=== PATIENT | female | born 1945 | race Caucasian/White ===

== ENCOUNTER 2025-02-10 08:05 | Inpatient (IN) | payer MEDICARE, BC, SELFPAY ==
[2025-02-10] VITALS (24 sets, daily range): BP systolic 78–140; BP diastolic 40–106; BMI 34.8
[2025-02-10 02:49] LABS: Hematocrit 41.4 % (37.0-47.0); Hemoglobin 13.8 g/dL (12.0-16.0); Mean Corp Hgb Conc. 33.3 g/dL (33.0-37.0); Mean Corpuscular Volume 92.2 fL (81.0-99.0); Platelet Count 188 10^3/uL (130-400); Red Cell Dist. Width 12.8 % (11.5-14.5)
[2025-02-10 02:56] LABS: ALT (SGPT) 34 U/L (0-35); AST (SGOT) 48 U/L (14-36); Albumin 3.7 g/dl (3.5-5.0); Alkaline Phosphatase 168 U/L (38-126); Blood Urea Nitrogen 29 mg/dl (7-17); Calcium 8.3 mg/dl (8.4-10.2); Carbon Dioxide 15 mmol/L (22-30); Chloride 111 mmol/L (98-107); Glucose 258 mg/dl (70-99); Potassium 4.2 mmol/L (3.5-5.1); Sodium 137 mmol/L (135-145); Total Protein 6.7 g/dl (6.3-8.2); eGFR > 60.00
[2025-02-10 02:59] LABS: Nucleated Red Blood Cells % 0 %
[2025-02-10] MEDS: NSS 1000 IV ×3 (03:58→07:58)
[2025-02-10] MEDS: BENADRYL 50 MG IV (04:27)
[2025-02-10] MEDS: SOLU-CORTEF 200 MG IV (04:27)
--- NOTE | 2025-02-10 05:28 | ED.GENMED ---
History of Present Illness
General
Chief Complaint: Fainting/Passed Out
Source: patient, family, ambulance crew and previous hospital records (ER visit for somewhat similar event January 2021)
Exam Limitations: none
Time Seen by Provider: 02/10/25 02:42
Nursing documentation reviewed up to this point in time: agreed with
History of Present Illness
History of Present Illness:
The patient is a 79-year-old female with a history of gastric bypass surgery, hysterectomy, appendectomy who presents with persistent diarrhea and vomiting. Symptoms began tonight and she reports multiple episodes of loose nonbloody watery stools
accompanied with multiple syncopal episodes. She has history of dumping syndrome over the past 15 years since her gastric bypass and often will have episodes of a few loose stools with near syncope to syncopal events but then short-lived, resolving
within 30 to 60 minutes. Tonight however diarrhea persists with multiple episodes of syncope. She has not had a fever nor chills. She denies injury. The patient confirms experiencing episodes of diarrhea and vomiting, both of which are more
severe than her previous experiences, which resemble dumping syndrome. The patient denies any other household members being ill. She reports abdominal pain, which is currently resolved. She was given Zofran by EMS with relief of nausea.
Prehospital blood pressure reportedly 70, 75 systolic upon arrival.
Past History
Past History
ED Past Medical History: Arrthythmia, HTN, NIDDM, Hypothyroidism and Other (Status post gastric bypass, surgery on Etta now to hidradenitis suppurativa of her arms, brachial cleft cyst surgery, pilonidal cyst surgery, appendectomy, hysterectomy,
,)
ED Past Surgical History: Appendectomy, Bowel resection (Gastric bypass), and Gynecological (Hysterectomy)
Social History
Tobacco: Non-smoker
Alcohol: None
Drug: None
Personal:
Living: with family
Employment: Retired
Family History
Family History: Other (Sister with kidney cancer and another sister with lung cancer)
Phy Exam
Physical Exam
Physical Exam:
GENERAL: 79-year-old woman appears her stated age, awake and alert, appears in moderate distress, easily communicative. Multiple family members accompanying.
EYE: pupils equal and reactive. anicteric
NECK: Supple, nontender, no meningismus, no significant adenopathy.
ENT: posterior pharynx is clear, oral mucosa is minimally dry. No rhinorrhea.
CARDIAC: Regular rate and rhythm. no murmur.
LUNGS: Clear breath sounds bilaterally, no acute respiratory distress, no wheezes/rales/rhonchi
ABDOMEN: Soft, nondistended, without focal tenderness, no r/g, no cvat. Mildly hypoactive bowel sounds.
NEUROLOGICAL: Alert and oriented x3, no focal neuro deficits.
SKIN: Warm and dry, minimally pale in color, skin intact. No rash.
MUSCULOSKELETAL: No C/C/E. peripheral pulses are full and equal b/l. No palpable tenderness.
PSYCH: Normal and appropriate interaction.
Course
Orders/Labs/Results
Orders:
Orders
02/10/25 01:58
Electrocardiogram (*1) Urgent
Reason for Study: Syncope
02/10/25 01:59
EKG- Treatment ONCE
02/10/25 02:00
Complete Blood Count/With Diff Urgent
Comprehensive Metabolic Panel Urgent
Lactic Acid Urgent
02/10/25 02:40
STOOL [C difficile Antigen & Toxins] Urgent
TRACY Source: Feces/Stool
Specimen Description:
Date Specimen was Collected: 02/10/25
Time Specimen was Collected: 02:39
02/10/25 02:45
Fecal Management-Treatment ONCE
0.9% Sodium Chloride 1000 ml [Nss] 1,000 ml IV BOLUS
02/10/25 03:32
CT Abd/pelvis W Iv Cont Urgent
Comment:
Reason For Exam: N/V/D, hypotension
0.9% Sodium Chloride 1000 ml [Nss] 1,000 ml IV BOLUS
02/10/25 03:48
Add On - Microbiology Urgent
Tests Added?: stool culture
02/10/25 04:20
Diphenhydramine [Benadryl] 50 mg IV NOW STA
Hydrocortisone Sod Succinate [Solu-Cortef] 200 mg IV NOW STA
02/10/25 06:55
0.9% Sodium Chloride 1000 ml [Nss] 1,000 ml IV 250 mls/hr
Abnormal Lab Results
02/10/25
02:00
MPV 11.6 H fL
(7.4-10.4)
Absolute Lymphs (auto) 3.6 H 10^3/uL
(1.2-3.4)
Chloride 111 H mmol/L
(98-107)
Carbon Dioxide 15 L mmol/L
(22-30)
BUN 29 H mg/dl
(7-17)
Glucose 258 H mg/dl
(70-99)
Calcium 8.3 L mg/dl
(8.4-10.2)
AST 48 H U/L
(14-36)
Alkaline Phosphatase 168 H U/L
(38-126)
02/10/25 02:00
02/10/25 02:00
Vital Signs
Initial and Last Documented VS:
Initial Vital Signs
Temp Pulse Resp Pulse Ox
97.9 F 74 18 99
02/10/25 01:53 02/10/25 01:53 02/10/25 01:53 02/10/25 01:53
Last Documented Vital Signs
Temp Pulse Resp BP Pulse Ox
97.9 F 80 15 119/66 89
02/10/25 01:53 02/10/25 06:30 02/10/25 06:30 02/10/25 06:30 02/10/25 05:34
MDM/Problems Addressed
Differential Diagnosis Includes:
The Differential Diagnosis includes, in no particular order and is not limited to:
1. Dumping syndrome
2. Gastroenteritis
3. Viral gastroenteritis
4. Food poisoning
5. Bacterial infection
6. Clostridioides difficile infection
7. Small bowel obstruction
8. Dehydration
9. Electrolyte imbalance
10. Medication side effect
MDM/Problems Addressed:
Nausea, vomiting, diarrhea, multiple syncopal events
Acute hypotension
Patient presents with profuse, recurrent watery loose stools with hypotension.
Concern for acute dehydration, electrolyte abnormality, sepsis.
IV fluid resuscitation initiated.
Labs are pending including lactic acid.
Will consider pressors if hypotension persists.
Stool cultures and stool for C. difficile are pending
Will plan for CT abdomen pelvis with IV contrast.
Chronic conditions affecting care:
Prior gastric bypass with previous episodes of dumping syndrome
Chronic conditions affecting care: DM, HTN and Previous abdomnial surgery
*Radiology
Radiology exam reviewed: radiology read reviewed
*Pulse Oximetry
SaO2: 94
Oxygen Mode of Delivery: Room air
Patient hypoxic: no
*EKG
Interpreted by ED Provider?: Yes
Interpretation: normal
Comparison EKG: no changes (Unchanged from previous January 2021)
Rate: normal
Rhythm: sinus
[place]: left axis deviation
Interval: long QT
QRS Pattern: normal QRS and poor R-wave progression
Ischemia: no ischemia
*Senior Automation Engineer Interpretation
Rate: normal
Interpretation: normal
Rhythm: sinus
*Critical Care Note
Total Time (30-74mins, 75-104mins- exclusive of procedures): 30
comment:
Critical care statement: A total of 30 minutes of critical care time was provided for this patient. This includes management of unstable vital signs, evaluation of the patient at bedside, reviewing the patient's pertinent medical records, discussion
with consultants, review of old EKGs and review of pertinent medical records. This time with separate from time utilized to perform the aforementioned documented procedures
Update Note
Update Note:
05:30
After 2.5 L normal saline solution, blood pressure has improved to 115 systolic.
Diarrhea has markedly improved but not completely resolved.
No further nausea/vomiting.
Abdominal exam overall reassuring, no appreciable tenderness.
CBC is unremarkable.
Mild metabolic acidosis with mild to moderate prerenal azotemia. Random glucose moderately elevated at 258. Mild hypocalcemia at 8.3.
Will continue IV fluids.
CT is pending.
07:10
CAT scan shows acute gastroenteritis, pancolitis. There is also concern for cholelithiasis with gallbladder distention and inflammation suspicious for cholecystitis. However patient continues to have no abdominal pain, specifically no right upper
quadrant tenderness thus cholecystitis is less likely.
She does continue with diarrhea however has been improving.
Will continue IV fluids and admit to hospitalist service. Stool cultures are pending. To consider initiation of antibiotics, will discuss with hospitalist.
ED Attending Note
-
Portions of this chart may have been created with voice recognition software.� Occasional wrong word or��sound alike� substitutions may have occurred due to the inherent limitations of voice recognition software.
Discharge Plan
Departure
Patient Disposition: Admit
Date of Disposition: 02/10/25
Time of Disposition: 07:08
Admit to: Med/Surg
Presentation/result/management discussed w/ accepting MD/DO: Hospitalist
Condition: Fair
Discharge Problem:
Acute gastroenteritis, Pancolitis with intractable diarrhea, Hypotension, Recurrent syncope
Referrals:
Ramon Elise MD [Family Provider, Internal Medicine]
Interventions
Interventions:
*Risk Screen - Suicide Last Done: 02/10/25 01:53
*General Assessment Last Done: 02/10/25 01:53
*Neglect/Abuse Screening Last Done: 02/10/25 01:53
*ED- Fall Risk Assessment Last Done: 02/10/25 01:53
ED- Cardiac Assessment Last Done: 02/10/25 03:55
ED- Neurological Assessment Last Done: 02/10/25 03:55
Discharge Date and Time
Print Language: GEORGIAN
--- NOTE | 2025-02-10 07:39 | HPS.HSE ---
Family Physician
-
Family Physician: Ramon Elise MD
Chief Complaint
-
Syncope, vomiting, diarrhea
History of Present Illness
79-year-old female with history of gastric bypass in 2011, was in her usual state of health up until late last night when she had initially constipation and then subsequent severe diarrhea and vomiting.
Denies abdominal pain, fevers or chills.
Did not take any medications for constipation.
Denies any recent medication changes. Denies any sick contacts. Ate roast beef sandwich for dinner that was made fresh. No one else got ill at home. She lives with her family.
She has occasional episodes of diarrhea that happen every other month but not on a regular basis. Most of her stools are normal.
Has been on Ozempic for approximately 1 year for diabetes as well as obesity. No dose changes recently.
Medical History
Past Medical History
Past Medical History: Reports Other
Additional Past Medical History:
Essential hypertension
DM 2
Obesity
Osteoporosis
Hypothyroidism
Sinus tachycardia
Hidradenitis suppurativa
Pilonidal cyst
Brachial cleft cyst
Past Surgical History: Reports Other
Additional Past Surgical History:
Hysterectomy
Appendectomy
Gastric bypass
Brachial cleft surgery
Pilonidal cyst surgery
Social History
Tobacco: Former Smoker
Alcohol: None
Drug: None
Living: With Family
Employment: Retired
Family History
Family History: Not pertinent
Allergies / Home Medications
Allergies reflects when Allergies were last updated in [employer].
Home Medications with original date entered in [employer]
Allergy/Medication List:
Allergies
Allergy/AdvReac Type Severity Reaction Status Date / Time
iodine Allergy Unknown Rash Verified 01/27/21 11:37
metformin Allergy Unknown Unknown Verified 01/27/21 11:37
Med list obtained based on patient information:
Ozempic (Uknown dose) subcutaneously every Tuesday
Lisinopril 2.5 mg daily
Metoprolol 25 mg twice daily
Levothyroxine 88 mcg daily
Vitamin B1 daily
Vitamin B12 daily
Multivitamin daily
Calcium
Vitamin D3 daily
Review of Systems
-
History Source: Patient
A 12 point ROS was completed and negative except as noted: Yes
Physical Exam
Vital Signs
Vital Signs
Temp Pulse Resp BP Pulse Ox
97.9 F 80 15 119/66 94
02/10/25 01:53 02/10/25 06:30 02/10/25 06:30 02/10/25 06:30 02/10/25 07:05
Physical Exam
General: Well Developed, Well Nourished, No Apparent Distress and Comfortable
HEENT: NormoCephalic and Anicteric; No Moist mucous membranes
Respiratory: Clear
Cardiac: S1/S2 and Regular Rhythm
Breast: Deferred by me
GI: Soft, Non Tender and Non Distended
Genito-urinary: Deferred by me
Musculoskeletal: No Clubbing, No Cyanosis and No Edema
Skin: Warm and Dry
Neuro: AO x 3
Hematologic/Lymphatic: No Lymphadenopathy
Psych: Calm
Laboratory Results
-
02/10/25 02:00
02/10/25 02:00
Laboratory Results
Lactic Acid 1.9 mmol/L (0.7-2.0) 02/10/25 02:00
Total Bilirubin 0.6 mg/dl (0.2-1.3) 02/10/25 02:00
AST 48 U/L (14-36) H 02/10/25 02:00
ALT 34 U/L (0-35) 02/10/25 02:00
Alkaline Phosphatase 168 U/L (38-126) H 02/10/25 02:00
Impression/Plan
-
Hypovolemic shock -due to volume depletion. Admit to telemetry. Blood pressure much improved in the emergency room with 2 L IV fluids.
Hold antihypertensives.
Syncope -due to volume depletion due to GI losses. Hypotensive on arrival, now improved. Continue IV fluid support. Monitor on telemetry. She felt lightheaded prior to event.
Doubt cardiac arrhythmia.
Acute gastroenteritis -likely infectious. Doubt inflammatory or other etiology. Continue supportive care with IV fluids, antiemetics. Start clear liquid diet.
No signs or symptoms of sepsis.
Check stool studies.
She does not have consistent dumping syndrome symptoms as her episodes of diarrhea only happen every other month and last for [address] abdomen/pelvis done in the emergency room consistent with acute gastroenteritis reportedly. Cholelithiasis noted as well as possible cholecystitis. Official report pending.
Cholecystitis clinically seems unlikely. Does not have significant right upper quadrant tenderness. LFTs are not concerning.
Can check right upper quadrant ultrasound for any concern.
Prerenal azotemia/metabolic acidosis -normal anion gap. Due to GI losses, volume depletion. Continue supportive care. Hold lisinopril, metoprolol in light of hypotension.
DM 2 with hyperglycemia -glucose 258 in the emergency room. Use low resistance NovoLog scale. Patient states last hemoglobin A1c was 6.1%.
Essential hypertension -presentation with shock, hypotension. Hold antihypertensives.
Hypothyroidism -continue levothyroxine. Check TSH.
Obesity due to excess calories -with previous gastric bypass in 2011. She lost to 100 pounds, subsequently gained some weight back. Then started Ozempic a year ago and lost 40 pounds.
Full code
Above discussed with emergency room attending, Dr. Robles.
--- NOTE | 2025-02-10 08:51 | EDCM ---
CM reviewed chart and met with pt bedside in ED. Lives with her daughter, ROBERTA and 3 grandchildren in split level home, [address], 7 steps up to Bedroom, full bath.
Independent in ADLs, personal care and ambulation at baseline, still driving.
Confirms prescription coverage.
Hx [facility] and [facility] for STR.
PCP: Ramon Elise
Pharmacy: [facility], uses [facility] for mail order
CM will continue to follow for any discharge planning needs.
[2025-02-10 09:48] LABS: TSH 20.10 uIU/ml (0.47-4.68)
[2025-02-10] MEDS: TYLENOL 650 MG PO ×2 (10:41→20:26)
[2025-02-10] MEDS: LR 1000 IV ×2 (10:47→22:29)
[2025-02-10 12:38] LABS: Glucose - Point of Care 202 mg/dl (70-99)
[2025-02-10] MEDS: NOVOLOG FLEXPEN-LOW RESISTANCE 2 UNITS SC (13:41)
[2025-02-10] MEDS: LOVENOX 40 MG SC (17:38)
[2025-02-10] MEDS: NOVOLOG FLEXPEN-LOW RESISTANCE 1 UNITS SC (17:55)
[2025-02-10] MEDS: DESENEX/MITRAZOL/ZEASORB 1 APPLIC TOPICAL (20:28)
[2025-02-10 23:13] LABS: Glucose - Point of Care 186 mg/dl (70-99)
[2025-02-10 23:14] LABS: Glucose - Point of Care 104 mg/dl (70-99)
[2025-02-11 03:29] VITALS: BP 109/48
[2025-02-11] MEDS: SYNTHROID 88 MCG PO (05:57)
[2025-02-11 07:43] LABS: Glucose - Point of Care 105 mg/dl (70-99)
[2025-02-11 07:44] VITALS: BP 120/50
[2025-02-11] MEDS: NOVOLOG FLEXPEN-LOW RESISTANCE SC ×3 (08:29→17:06)
[2025-02-11] MEDS: TYLENOL 650 MG PO ×2 (08:32→14:52)
[2025-02-11] MEDS: DESENEX/MITRAZOL/ZEASORB 1 APPLIC TOPICAL ×2 (08:32→19:58)
[2025-02-11 09:05] LABS: ALT (SGPT) 26 U/L (0-35); AST (SGOT) 34 U/L (14-36); Albumin 3.2 g/dl (3.5-5.0); Alkaline Phosphatase 152 U/L (38-126); Blood Urea Nitrogen 13 mg/dl (7-17); Calcium 7.5 mg/dl (8.4-10.2); Carbon Dioxide 22 mmol/L (22-30); Chloride 111 mmol/L (98-107); Estimated Creatinine Clearance 69 ml/min; Glucose 135 mg/dl (70-99); Potassium 4.2 mmol/L (3.5-5.1); Sodium 138 mmol/L (135-145); Total Protein 5.7 g/dl (6.3-8.2); eGFR > 60.00
--- NOTE | 2025-02-11 10:07 | W.PN.HOSP.TC ---
Today's Communication/Plan
-
increase synthroid
advance diet
Assessment / Plan
Assessment / Plan
pt is a 79 year old female
Hypovolemic shock--due to volume depletion from diarrhea--resolved--finished IVF--restart meds
Syncope--due to volume depletion due to GI losses--pt says hit head and lost consciousness--will check head CT
right foot pain--hit foot when passed out--check x-ray
Acute gastroenteritis -likely infectious--finished IVF--advance diet--await stool studies--C. diff neg--CT scan final report pending--CT abdomen/pelvis done in the emergency room consistent with acute gastroenteritis reportedly.
Prerenal azotemia/metabolic acidosis -normal anion gap. Due to GI losses, volume depletion--resolved
DM 2 with hyperglycemia -glucose 258 in the emergency room. Use low resistance NovoLog scale. Patient states last hemoglobin A1c was 6.1%.
Essential hypertension--restart meds
Hypothyroidism -continue levothyroxine--TSH elevated at 20--will increase synthroid to 100mcg
Obesity due to excess calories -with previous gastric bypass in 2011. She lost to 100 pounds, subsequently gained some weight back. Then started Ozempic a year ago and lost 40 pounds.
Full code
Anticipated Discharge: Within 24 hours
Subjective/Interval History
-
Date of Service: February 11, 2025
pt c/o right foot pain--diarrhea improving--wants more than clear liquids
Objective Data
-
Labs:
Laboratory Results
02/11/25
08:04
Sodium 138
Potassium 4.2
Chloride 111 H
Carbon Dioxide 22
BUN 13
Creatinine 0.7
Glucose 135 H
Calcium 7.5 L
Total Bilirubin 0.3
AST 34
ALT 26
Alkaline Phosphatase 152 H
Vital Signs:
max temp for 24 hours
02/10/25
19:38
Temp 99.0 F
Vital Signs
Temp Pulse Resp BP Pulse Ox
98.0 F 89 18 120/50 96
02/11/25 07:44 02/11/25 07:44 02/11/25 07:44 02/11/25 07:44 02/11/25 07:44
I&O
02/10/25 02/11/25 02/12/25
06:59 06:59 06:59
Intake Total 1520 / 1520
Output Total 250 / 250
Balance 1270 / 1270
Review of Systems
-
All other systems: Reviewed and negative
Abdomen/GI: Reports Diarrhea (improved)
Musculoskeletal: Reports Other (right foot pain)
Physical Exam
-
General: Well Developed, Well Nourished and No Apparent Distress
HEENT: Normocephalic and Atraumatic; Negative Oxygen
Respiratory: Clear to Auscultation; Negative Wheezes or Rhonchi
Cardiac: Regular Rhythm and S1/S2; Negative Murmur
GI: Soft, Nontender, Nondistended and Normal Bowel Sounds
Musculoskeletal: No Clubbing, No Cyanosis, No Edema and Other (right foot bruised, swollen, tender to touch)
Neuro: Awake
Psych: Calm
[2025-02-11 11:14] LABS: Glycohemoglobin (HgbA1c) 6.1 % (4.0-5.6)
[2025-02-11 11:40] LABS: Glucose - Point of Care 94 mg/dl (70-99)
--- NOTE | 2025-02-11 13:42 | CM ---
CM following re: discharge planning.
Reviewed pt's chart, et with pt.
According to pt will be ready for discharge within 24 hours. Pt is aware, expressed her agreement and she stated her granddaughter will transport home. IMM reviewed, placed on chart, pt has a copy.
D/C plan: home with anticipated no needs. Granddaughter to transport at discharge.
CM will follow with discharge plan updates as hospitalization progresses
[2025-02-11 15:27] VITALS: BP 140/68
[2025-02-11 16:56] LABS: Glucose - Point of Care 93 mg/dl (70-99)
[2025-02-11] MEDS: LOVENOX 40 MG SC (17:38)
[2025-02-11] MEDS: LOPRESSOR 25 MG PO (19:58)
[2025-02-11 21:44] LABS: Glucose - Point of Care 78 mg/dl (70-99)
[2025-02-11 23:00] VITALS: BP 129/48
[2025-02-11 23:33] VITALS: BP 129/48
[2025-02-12] MEDS: SYNTHROID 100 MCG PO (05:59)
[2025-02-12 07:21] VITALS: BP 122/59
[2025-02-12 07:24] LABS: Glucose - Point of Care 94 mg/dl (70-99)
[2025-02-12] MEDS: NOVOLOG FLEXPEN-LOW RESISTANCE SC ×3 (07:27→17:40)
[2025-02-12] MEDS: ZESTRIL 2.5 MG PO (07:47)
[2025-02-12] MEDS: LOPRESSOR 25 MG PO (07:47)
[2025-02-12] MEDS: DESENEX/MITRAZOL/ZEASORB 1 APPLIC TOPICAL (07:49)
[2025-02-12 08:31] LABS: Hematocrit 29.9 % (37.0-47.0); Hemoglobin 9.9 g/dL (12.0-16.0); Mean Corp Hgb Conc. 33.1 g/dL (33.0-37.0); Mean Corpuscular Volume 90.9 fL (81.0-99.0); Platelet Count 145 10^3/uL (130-400); Red Cell Dist. Width 13.0 % (11.5-14.5)
[2025-02-12 08:40] LABS: Blood Urea Nitrogen 12 mg/dl (7-17); Calcium 7.8 mg/dl (8.4-10.2); Carbon Dioxide 24 mmol/L (22-30); Chloride 110 mmol/L (98-107); Estimated Creatinine Clearance 80 ml/min; Glucose 92 mg/dl (70-99); Magnesium 1.8 mg/dl (1.6-2.3); Potassium 4.0 mmol/L (3.5-5.1); Sodium 139 mmol/L (135-145); eGFR > 60.00
--- NOTE | 2025-02-12 11:04 | CM ---
Patient seen at bedside with physician on . Patient for discharge home today with Podiatry to see patient per physician. Patient family to transport home per patient. IMM completed and form placed on chart. CM will continue to follow for
discharge planning needs.
Plan; home with no needs anticipated.
--- NOTE | 2025-02-12 11:30 | W.PN.HOSP.TC ---
Addendum entered and electronically signed by Anna Rios MD 02/13/25 10:17:
traumatic avulsion fracture
Original Note:
Today's Communication/Plan
-
await podiatry
d/c
Assessment / Plan
Assessment / Plan
pt is a 79 year old female
Hypovolemic shock--due to volume depletion from diarrhea--resolved--finished IVF--restarted meds
Syncope--due to volume depletion due to GI losses--pt says hit head and lost consciousness--will check head CT
anemia--doubt any GI bleeding--suspect hemoconcentration with subsequent IV fluid dilution
right foot pain--hit foot when passed out--x-ray with avulsion fracture--consult podiatry
Acute gastroenteritis -likely infectious--finished IVF--advance diet--await stool studies--C. diff neg--CT scan final report pending--CT abdomen/pelvis done in the emergency room consistent with acute gastroenteritis reportedly.
Prerenal azotemia/metabolic acidosis -normal anion gap. Due to GI losses, volume depletion--resolved
DM 2 with hyperglycemia -glucose 258 in the emergency room. Use low resistance NovoLog scale. Patient states last hemoglobin A1c was 6.1%.
Essential hypertension--restart meds
Hypothyroidism -continue levothyroxine--TSH elevated at 20--will increase synthroid to 100mcg
Obesity due to excess calories -with previous gastric bypass in 2011. She lost to 100 pounds, subsequently gained some weight back. Then started Ozempic a year ago and lost 40 pounds.
Full code
Anticipated Discharge: Today
Subjective/Interval History
-
Date of Service: February 12, 2025
pt feeling better--ready to go home
Objective Data
-
Labs:
Laboratory Results
02/12/25
07:13
WBC 7.4
Hgb 9.9 L D
Hct 29.9 L
Plt Count 145 D
Sodium 139
Potassium 4.0
Chloride 110 H
Carbon Dioxide 24
BUN 12
Creatinine 0.6
Glucose 92
Calcium 7.8 L
Vital Signs:
max temp for 24 hours
02/12/25
07:21
Temp 98.3 F
Vital Signs
Temp Pulse Resp BP Pulse Ox
98.3 F 83 18 122/59 98
02/12/25 07:21 02/12/25 07:47 02/12/25 07:21 02/12/25 07:47 02/12/25 09:00
I&O
02/11/25 02/12/25 02/13/25
06:59 06:59 06:59
Intake Total 1520 / 1520 360 / 360
Output Total 250 / 250
Balance 1270 / 1270 360 / 360
Review of Systems
-
All other systems: Reviewed and negative
Physical Exam
-
General: Well Developed, Well Nourished and No Apparent Distress
HEENT: Normocephalic and Atraumatic
Respiratory: Clear to Auscultation; Negative Wheezes or Rhonchi
Cardiac: Regular Rhythm and S1/S2; Negative Murmur
GI: Soft, Nontender, Nondistended and Normal Bowel Sounds
Musculoskeletal: No Clubbing, No Cyanosis and Other (right foot swollen bruised)
Skin: Warm
Neuro: Awake
Psych: Calm
[2025-02-12 12:09] LABS: Glucose - Point of Care 80 mg/dl (70-99)
[2025-02-12 15:03] VITALS: BP 133/64
[2025-02-12] MEDS: LOVENOX 40 MG SC (17:41)
[2025-02-12 17:46] LABS: Glucose - Point of Care 85 mg/dl (70-99)
[2025-02-12 19:19] VITALS: BP 132/65
--- NOTE | 2025-02-12 19:51 | CON.MD ---
Consultation - Medical
-
History of Present Illness
Podiatry consulted for right foot pain and swelling. She is a 79-year-old female who passed out at home on 02/10/25. She states that she had initially constipation and then subsequent severe diarrhea and vomiting and weakness. At the time
she twisted her ankle and injured her foot.
Past Medical History
Essential hypertension
DM 2
Obesity
Osteoporosis
Hypothyroidism
Sinus tachycardia
Hidradenitis suppurativa
Pilonidal cyst
Brachial cleft cyst
Past Surgical History:
Hysterectomy
Appendectomy
Gastric bypass
Brachial cleft surgery
Pilonidal cyst surgery
Social History
Tobacco: Former Smoker
Alcohol: None
Drug: None
Living: With Family
Employment: Retired
Family History
Not pertinent
Allergies
Allergy/AdvReac Type Severity Reaction Status Date / Time
iodine Allergy Unknown Rash Verified 01/27/21 11:37
metformin Allergy Unknown Unknown Verified 01/27/21 11:37
Medications:
Ozempic 1 mg subcutaneously every Tuesday
Lisinopril 2.5 mg daily
Metoprolol 25 mg twice daily
Levothyroxine 88 mcg daily
Vitamin B1 daily
Vitamin B12 daily
Multivitamin daily
Calcium
Vitamin D3 daily
Physical Exam: right foot with palpable pulses, normal proximal to distal cooling, CFT WNL, there is edema and ecchymosis on the lateral aspect of the foot and over the lateral ankle area. Tenderness to palpable at the base of the 5th metatarsal
and over the ATFL and CFL, no signs of gross ankle instability.. No blisters of breaks in the skin, no fullness or ecchymosis in the plantar vault, no pain with stress abduction of the midfoot.
X-ray:
IMPRESSION:
There is a small ossific fragment adjacent to the base of the fifth metatarsal which likely represents an avulsion fracture.
Assessment:
Right 5th metatarsal avulsion fracture - non displaced
Right ankle sprain
Plan: She is evaluated at bedside and x-rays were reviewed and discussed. I recommend she weight bear as tolerated in a surgical shoe with a rolling walker for assistance. ICE, elevation and compression sleeve. She should follow up with me or
her software programmer as an outpatient.
Consultation
-
Date/Time Consultation Requested: 02/12/25 - 7:54 am
Date/Time Consultation Performed: 02/12/25 - 19:52
Requesting Provider: Gabriel
Performing Provider: Cassandra
Reason for Consultation: Right foot pain
--- NOTE | 2025-02-13 07:03 | W.DCSUMMARY ---
Discharge Summary
Discharge Data
Date of Admission: 02/10/25
Date of Discharge: 02/12/25
-
Pending Results: No
Hospital Course
Primary care physician : Ramon Elise
Principal Discharge diagnosis : Hypovolemic shock with syncope, anemia, right foot pain with avulsion fracture, acute gastroenteritis, prerenal azotemia with metabolic acidosis
Chronic Discharge diagnosis : Type 2 diabetes with hyperglycemia, essential hypertension, hypothyroidism
Hospital Course : Patient was a 79-year-old female with a history of gastric bypass who had constipation and then developed subsequent severe diarrhea and vomiting. She denied abdominal pain, fevers, chills. She did not take any medications for
constipation. She states she has occasional episodes of diarrhea that happen every other month but not on a regular basis. She has been on Ozempic for approximately 1 year for diabetes as well as obesity without any medication changes. Patient
was found to be in hypovolemic shock and was admitted.
Problem #1: Hypovolemic shock with syncope. Patient was volume depleted on admission with hypotension. This responded nicely to IV fluids and shock resolved. Initial medications for blood pressure were held. These were started at discharge.
Patient did say she hit her head and lost consciousness. Head CT was checked and was negative for any acute issues.
Problem #2: Prerenal azotemia with metabolic acidosis. Patient had a normal anion gap. This was due to GI losses and volume depletion. That is since resolved.
Problem #3: Acute gastroenteritis. This is likely infectious, however, Ozempic may be playing a role. C. difficile and norovirus were negative. Salmonella, Shigella, Campylobacter, Shiga toxin E. coli all were also negative.
Problem #4: Anemia. Patient's hemoglobin on admission was 13.8 which has dropped to 9.9. We do not believe that she has any bleeding. This is likely from IV fluids in addition to hemoconcentration on admission from volume contraction due to GI
losses.
Problem #5: Right foot pain with avulsion fracture. Foot injury happened when she passed out. X-rays reveal avulsion fracture of the fifth metatarsal area. She was seen in consultation by podiatry. Recommendations were weightbearing as tolerated
with surgical shoe and rolling walker for assistance. She is to follow-up with podiatry as an outpatient.
Problem #6: All other medical issues. These include Type 2 diabetes with hyperglycemia, essential hypertension, hypothyroidism. These medical issues were stable during her hospitalization. Medications were continued as able. In regards to her
hypothyroidism, patient's TSH was 20. Levothyroxine dose was increased from 88 mcg to 100 mcg daily. She should have repeat thyroid function test in approximately 3 months.
Patient is stable for discharge home at this time. If there are any questions regarding this dictation or her hospital stay, please do not hesitate to call. Our office number is [phone].
Time for discharge equals 34 minutes.
Important imaging findings :
CT SCAN IMPRESSION:
Findings suspicious for acute gastroenteritis and pancolitis, as noted above, without intestinal obstruction, free air or intestinal pneumatosis. Suggest correlation with serum lactate level and suggest surgical consultation.
Fluid/contrast levels in the extrarenal pelves bilaterally, cannot exclude mild bilateral obstructive uropathy.
Layering stones and/or sludge in the gallbladder. Cannot exclude some mild gallbladder wall thickening. Suggest Abdominal ultrasound for more complete evaluation, if clinically warranted.
Prior surgery, presumably Lily-en-Y gastric bypass.
Mild T12 vertebral compression fracture, likely chronic.
FOOT X-RAY IMPRESSION:
There is a small ossific fragment adjacent to the base of the fifth metatarsal which likely represents an avulsion fracture.
Discharge Plan
-
Patient Disposition: Home (Routine Discharge)
Discharge Diagnosis/Procedures: Hypovolemic shock due to volume depletion from diarrhea, syncope as a result, anemia, right foot pain with avulsion fracture, acute gastroenteritis, prerenal azotemia with metabolic acidosis�resolved, type 2 diabetes
with hyperglycemia, essential hypertension, hypothyroidism
Condition: Good
Diet: Low Residue
Additional Diets: advance as tolerated
Activity: As tolerated
Driving Restrictions: Not until seen by your Dr
Bathing Restrictions: None
Activity Restrictions/Additional Instructions:
Your TSH was 20--your dose of levothyroxine was increased--recheck your labs in 3 months--obtain script from your primary MD
Referrals:
Ramon Elise MD [Family Provider, Internal Medicine] - in less than 1 week
Jacqueline Trujillo DPM [Active, Podiatry]
Referral Note: as directed
Prescriptions:
New
levothyroxine 100 mcg Tablet
100 mcg PO DAILY @ 0600 Qty: 30 0RF
Rx Instructions:
new dose
acetaminophen 325 mg Tablet
650 mg PO Q6HPRN PRN (Reason: mild pain/ fever>100.5F) Qty: 0 0RF
Continued
lisinopril 5 mg tablet
2.5 mg PO DAILY
metoprolol tartrate 25 mg tablet
25 mg PO BID
Ozempic 1 mg/dose (4 mg/3 mL) pen injector
1 mg SC JARVIS
Discontinued
levothyroxine [Synthroid] 88 mcg tablet
88 mcg PO DAILY@06
Discharge Orders:
Discharge Patient (As Directed); Ordered 02/12/25
Ordered By: Anna Rios
Discharge Date and Time
Discharge Date/Time: 02/12/25 21:21
Print Language: PALAUAN
--- NOTE | 2025-02-13 09:17 | PN.CDI ---
CDI
- -
CDI:
Physician Documentation Request
Admit Date: 02/10/25 08:05
Dear Doctor Gabriel,
02/12 progress note states 'right foot pain--hit foot when passed out'
H&P states past medical history of osteoporosis.
Podiatry consult assessment 'Right 5th metatarsal avulsion fracture - non displaced'
Please provide further specificity regarding the diagnosis of fracture:
Etiology
Traumatic
Pathologic due to osteoporosis
Due to a combination of trauma and a pathological process
but the trauma alone would not likely have been sufficient
to cause the fracture
Use of terms such as suspected, likely, concern for, or probable (associated with a specific diagnosis that is being evaluated, monitored, or treated as if it exists) are acceptable and can be coded in the inpatient setting, when documented at the
time of discharge.
Thank you,
Isadora Villanueva RN, BSN
CDI Specialist
tiger text
Please use your independent medical judgment in providing your response.
== END 2025-02-12 21:21 | disposition home or self-care (01) | DRG 391 ==
LOC: 2 NORTH 08:05
PROVIDERS: ADMITTING PHYSICIAN Hospitalist; ATTENDING PHYSICIAN Internal Medicine; CONSULT PHYSICIAN Podiatrist; EMERGENCY PHYSICIAN Emergency Medicine; FAMILY PHYSICIAN Internal Medicine
DX: A09 Infectious gastroenteritis and colitis, unspecified (principal); R57.1 Hypovolemic shock; E87.20 Acidosis, unspecified; M48.54XA Collapsed vertebra, not elsewhere classified, thoracic region, initial encounter for fracture; E86.9 Volume depletion, unspecified; R55 Syncope and collapse; D64.9 Anemia, unspecified; E03.9 Hypothyroidism, unspecified; E11.65 Type 2 diabetes mellitus with hyperglycemia; I10 Essential (primary) hypertension; S92.351A Displaced fracture of fifth metatarsal bone, right foot, initial encounter for closed fracture; Z98.84 Bariatric surgery status; E66.09 Other obesity due to excess calories; Z68.34 Body mass index [BMI] 34.0-34.9, adult; M81.0 Age-related osteoporosis without current pathological fracture; Z87.891 Personal history of nicotine dependence; Z88.8 Allergy status to other drugs, medicaments and biological substances; Z79.890 Hormone replacement therapy; S93.401A Sprain of unspecified ligament of right ankle, initial encounter; Z79.85 Long-term (current) use of injectable non-insulin antidiabetic drugs; Z80.1 Family history of malignant neoplasm of trachea, bronchus and lung; Z80.51 Family history of malignant neoplasm of kidney; Z90.710 Acquired absence of both cervix and uterus; X50.1XXA Overexertion from prolonged static or awkward postures, initial encounter
CPT/HCPCS: 70450; 73630; 74177; 80048; 80053; 82962; 83036; 83605; 83735; 84443; 85025; 85027; 87045; 87046; 87324; 87427; 87449; 87798; 93005; 96361; 96374; 96375; 99291; Q9967